=== PATIENT | male | born 1975 | race Hispanic/Latino ===

== ENCOUNTER 2021-06-22 10:05 | Outpatient (CLI) | payer BC | END 2021-06-22 10:06 | disposition home or self-care (01) | LOC: CSHMRI 10:05 | PROVIDERS: ATTEND Psychiatry & Neurology Neurology | DX: M54.2 Cervicalgia (principal); M47.812 Spondylosis without myelopathy or radiculopathy, cervical region; Q76.49 Other congenital malformations of spine, not associated with scoliosis | CPT/HCPCS: 72141 ==